=== PATIENT | female | born 1960 | race Caucasian/White ===

== ENCOUNTER 2024-12-11 10:26 | Outpatient (CLI) | payer SELFPAY ==
--- NOTE | ~2024-12-11 | DEXA_ITS ---
Bone Density Report Name: DESIREE SAMANO Age: 64 Sex: Female Ethnicity: White Date of : 1960 Indication: postmenopausal; screening for osteoporosis; height loss; Referring Provider: COSTA SHIPLEY Study: Bone densitometry was performed. Exam Date: December 11, 2024 Accession number: [id number] Bone Density: Region BMD T-score Z-score Classification AP Spine(L1-L4) 1.079 0.3 1.9 Normal Femoral Neck (Left) 0.793 -0.5 0.9 Normal Total Hip (Left) 1.041 0.8 1.9 Normal Femoral Neck (Right) 0.797 -0.5 0.9 Normal Total Hip (Right) 0.939 0.0 1.1 Normal Total Hip Mean 0.990 0.4 1.5 Normal World Health Organization criteria for BMD impression classify patients as: Normal (T-score at or above -1.0), Osteopenia (T-score between -1.0 and -2.5), or Osteoporosis (T-score at or below -2.5). 10-year Fracture Risk: FRAX not reported because: All T-scores for Spine Total, Hip Total, Femoral Neck at or above -1.0 Clinical Information Provided by Patient: Has used the following medications: Vitamin D, Calcium Patient maximum height was 67 Menopause Age: 52 Drinks caffeinated beverages Onset of menses at age 13 Number of children 2 Impression: The patient has normal bone mass. Discussion: BONE DENSITY IS ABOVE THE MINIMUM DESIRABLE LEVEL AT ALL SKELETAL SITES TESTED. This patient?s bone mineral density is above the minimum desirable level (T-score -1.0 or better) at all sites measured. The patient should follow a healthful lifestyle (good nutrition with adequate calcium and vitamin D, and appropriate weight-bearing exercise). Follow-Up: Consider repeating this study in 5 years or sooner if there is some new clinical indication. Reported by: LAMONT on 12/11/2024 10:54:00 AM. Reviewed, dictated and finalized at location A.
== END 2024-12-11 10:27 | disposition home or self-care (01) ==
PROVIDERS: PCP Internal Medicine; Visit Provider Obstetrics & Gynecology Gynecology
DX: Z13.820 Encounter for screening for osteoporosis (principal); Z78.0 Asymptomatic menopausal state
CPT/HCPCS: 77080